=== PATIENT | female | born 1965 | race Caucasian/White ===

== ENCOUNTER 2017-08-27 15:14 | Observation (INO) ==
[2017-08-27] MEDS ORDERED: Ipratropium/Albuterol Neb 3 ML IH ONE ×2 (15:47→15:50)
--- NOTE | 2017-08-27 15:53 | Emergency Department Note ---
Disposition Clinical Impression: Acute exacerbation of chronic obstructive airways disease Disposition: Admitted As Inpatient Condition: Good Time of Disposition: 17:00 SOB HPI - General Chief Complaint: ED Shortness of Breath/Dyspnea Stated Complaint: difficult breathing Time Seen by Provider: 08/27/17 15:40 Source: patient Limitations: no limitations Nursing Notes Reviewed: Yes Vital Signs Reviewed: Yes - History of Present Illness Ms. Peter reports 2 weeks of shortness of breath and cough nonproductive. She is not sure if she had any fevers. Decreased by mouth intake secondary to throat pain. No nausea vomiting. She has had a little bit of diarrhea. She had some diffuse muscle aches as well. Currently she hurts in the chest only when coughing with deep inspiration and on position change. She just quit smoking a couple of days ago. She uses albuterol at home typically just once a month but has done much more so in the last 2 weeks with some temporary relief. She has no heart history. Pt Subjective Complaint: shortness of breath, cough, pain with inspiration, chest pain - Related Data Home Medications Medication Instructions Recorded Confirmed Brinzolamide 1% [Azopt] 1 drop .ROUTE TID 10/17/15 08/27/17 Gabapentin [Neurontin] 800 mg PO TID 10/17/15 08/27/17 Ibuprofen [Motrin] 400 mg PO Q8HR PRN 10/17/15 08/27/17 Lisinopril [Zestril] 20 mg PO DAILY 10/17/15 08/27/17 Methylphenidate HCl [Ritalin] 10 mg PO 0800,1200 10/17/15 08/27/17 Sertraline [Zoloft] 1 tab PO DAILY 10/17/15 08/27/17 hydroCHLOROthiazide 25 mg PO DAILY 10/17/15 08/27/17 [Hydrochlorothiazide] Travoprost [Travatan Z] 5 ml OP DAILY 11/29/15 08/27/17 Albuterol Sulfate [Albuterol 1 puff IH Q4HR PRN 08/27/17 08/27/17 Inhaler] Buspirone HCl [Buspar] 10 mg PO BID 08/27/17 08/27/17 Citalopram [CeleXA] 20 mg PO DAILY 08/27/17 08/27/17 Cyclobenzaprine [Flexeril] 5 mg PO TID PRN 08/27/17 08/27/17 Dexlansoprazole [Dexilant] 30 mg PO DAILY 08/27/17 08/27/17 Fluticasone/Vilanterol [Breo 1 each IH DAILY 08/27/17 08/27/17 Ellipta 100-25 Mcg INH] Allergies Allergy/AdvReac Type Severity Reaction Status Date / Time codeine Allergy Unknown See Verified 08/27/17 15:22 Comments Oxycodone [From OxyContin] Allergy Unknown Difficulty Verified 08/27/17 15:22 Breathing Penicillins Allergy Unknown See Verified 08/27/17 15:22 Comments Sulfa (Sulfonamide Allergy Unknown See Verified 08/27/17 15:22 Antibiotics) Comments tramadol [From Ultram] Allergy Unknown Hives Verified 08/27/17 15:22 Constitutional: Denies: fever, chills ENT ED: Reports: throat pain, dysphagia. Denies: congestion Cardiovascular: Reports: as per HPI, chest pain, dyspnea on exertion Respiratory: Reports: cough, dyspnea. Denies: sputum production Gastrointestinal: Denies: nausea, vomiting, diarrhea Musculoskeletal: Reports: myalgia Endocrine: Reports: fatigue Past Medical History - Past Medical History Medical history: Reports: asthma, GERD, hypertension Psychiatric history: Reports: anxiety, depression INDIVIDUAL PENSION CONSULTANT history: Reports: no INDIVIDUAL PENSION CONSULTANT history - Social History Smoking Status: Current every day smoker Smokeless Tobacco Status: No Alcohol use: Reports: none Drug use: Reports: none Physical Exam - General Limitations: no limitations General appearance: alert, in no apparent distress, other (She appears to be very tired) - Head Head exam: atraumatic, normocephalic - Eye Eye exam: Present: normal appearance. Absent: conjunctival injection - ENT ENT exam: normal exam, normal oropharynx, mucous membranes moist, TM's normal bilaterally, normal external ear exam - Neck Neck exam: Present: normal inspection. Absent: lymphadenopathy - Chest Chest inspection: Present: normal inspection, symmetric chest wall rise, tenderness (Positive pain to palpation anterior chest reproducible for her presenting complaint) - Respiratory Respiratory exam: Present: wheezes (Diffuse symmetric expiratory wheezes with fair air exchange.). Absent: respiratory distress - Cardiovascular Cardiovascular exam: Present: regular rate, normal rhythm, normal heart sounds. Absent: systolic murmur, diastolic murmur - Extremities Exam Extremities exam: Present: normal inspection. Absent: pedal edema, calf tenderness (No calf Cord erythema or edema) - Neurological Exam Neurological exam: Present: alert - Psychiatric Psychiatric exam: Present: normal affect, normal mood - Skin Skin exam: Present: warm, dry Course Vital Signs Temperature 97.7 F 08/27/17 15:15 Pulse Rate 98 08/27/17 15:15 Respiratory Rate 20 08/27/17 15:15 Blood Pressure 132/71 08/27/17 15:15 O2 Sat by Pulse Oximetry 93 08/27/17 15:15 Temperature 97.7 F 08/27/17 15:15 Pulse Rate 98 08/27/17 15:15 Respiratory Rate 20 08/27/17 15:15 Blood Pressure 132/71 08/27/17 15:15 O2 Sat by Pulse Oximetry 93 08/27/17 15:15 Oxygen Delivery Oxygen Delivery Nasal Cannula Shortness of Breath/Dyspnea - MDM Narrative Medical decision making narrative: Shortness of breath consistent with COPD exacerbation. She is now O2 dependent. She is satting in the mid 90s on 2 L and is subjectively better after 2 additional DuoNeb treatments given here in the emergency department. Repeat lung exam demonstrates persistence of wheezing although there is much better air exchange and she appears to be much more comfortable. Because FiO2 requirement will be necessary to admit her to the hospital. I spoke with the covering hospitalist here at [facility] and presented the case. He accepted admission. She is in improved condition awaiting transfer to the floor. Hypokalemia. We will keep her off her hydrochlorothiazide. She has had some diarrhea as well. We will continue to replace the potassium with a rider and give an initial by mouth doses well as the potassium is substantially decreased and will continue to do so with albuterol administration. - Medical Records Medical records reviewed: Yes I reviewed the patient's medical records. - Lab Data Lab results reviewed: Yes I reviewed the patient's lab results. Result diagrams: 08/27/17 16:09 08/27/17 16: Lab Results 08/27/17 08/27/17 08/27/17 Range/Units 16:09 16: 16: WBC 18.2 H (4.3-11.1) K/mcL RBC 4.31 (3.82-4.97) M/mcL Hgb 13.0 (11.5-15.4) g/dL Hct 38.8 (35.3-44.9) % MCV 90.0 (83.0-100.0) fL MCH 30.2 (28.0-33.3) pg MCHC 33.5 (31.6-35.5) g/dL RDW 14.0 (11.5-14.5) % Plt Count 263 (140-400) K/mcL MPV 9.2 L (9.4-12.4) fL Immature Gran % 0.7 (0-4) % Seg Neutrophils % 83.0 % Lymphocytes % 9.4 % Monocytes % 3.9 % Eosinophils % 2.7 % Basophils % 0.3 % Neutrophils # 15.1 H (1.6-8.9) K/mcL Lymphocytes # 1.7 (0.6-4.6) K/mcL Monocytes # 0.7 (0.0-1.3) K/mcL Eosinophils # 0.5 (0.0-0.6) K/mcL Basophils # 0.1 (0.0-0.2) K/mcL PT (9.4-12.1) Seconds INR APTT (26.0-36.0) Seconds Sodium (136-145) mEq/L Potassium (3.5-5.1) mEq/L Chloride (98-107) mEq/L Carbon Dioxide (23-29) mEq/L BUN (6-20) mg/dL Creatinine (0.60-1.20) mg/dL Est GFR ( Amer) (> 60) Est GFR (Non-Af Amer) (> 60) BUN/Creatinine Ratio (6-26) Glucose (70-105) mg/dL Calculated Osmolality (280-300) Lactic Acid (0.5-2.2) mmol/L Calcium (8.6-10.3) mg/dL Magnesium (1.6-2.6) mg/dL Total Bilirubin (0.3-1.0) mg/dL AST (13-39) Units/L ALT (7-52) Units/L Alkaline Phosphatase (34-104) Units/L Troponin I < 0.03 (< 0.04) ng/mL B-Natriuretic Peptide 44 (Less than 100) pg/mL Serum Total Protein (6.4-8.9) g/dL Albumin (3.5-5.7) g/dL Globulin (2.4-3.5) g/dL Albumin/Globulin Ratio (1.1-2.2) 08/27/17 08/27/17 08/27/17 Range/Units 16:09 16:09 16:09 WBC (4.3-11.1) K/mcL RBC (3.82-4.97) M/mcL Hgb (11.5-15.4) g/dL Hct (35.3-44.9) % MCV (83.0-100.0) fL MCH (28.0-33.3) pg MCHC (31.6-35.5) g/dL RDW (11.5-14.5) % Plt Count (140-400) K/mcL MPV (9.4-12.4) fL Immature Gran % (0-4) % Seg Neutrophils % % Lymphocytes % % Monocytes % % Eosinophils % % Basophils % % Neutrophils # (1.6-8.9) K/mcL Lymphocytes # (0.6-4.6) K/mcL Monocytes # (0.0-1.3) K/mcL Eosinophils # (0.0-0.6) K/mcL Basophils # (0.0-0.2) K/mcL PT (9.4-12.1) Seconds INR APTT (26.0-36.0) Seconds Sodium 136 (136-145) mEq/L Potassium 2.7 L (3.5-5.1) mEq/L Chloride 100 (98-107) mEq/L Carbon Dioxide 27 (23-29) mEq/L BUN 12 (6-20) mg/dL Creatinine 0.67 (0.60-1.20) mg/dL Est GFR ( Amer) > 60 (> 60) Est GFR (Non-Af Amer) > 60 (> 60) BUN/Creatinine Ratio 18 (6-26) Glucose 115 H (70-105) mg/dL Calculated Osmolality 283 (280-300) Lactic Acid 1.3 (0.5-2.2) mmol/L Calcium 9.3 (8.6-10.3) mg/dL Magnesium 1.8 (1.6-2.6) mg/dL Total Bilirubin 0.9 (0.3-1.0) mg/dL AST 11 L (13-39) Units/L ALT 10 (7-52) Units/L Alkaline Phosphatase 103 (34-104) Units/L Troponin I (< 0.04) ng/mL B-Natriuretic Peptide (Less than 100) pg/mL Serum Total Protein 6.4 (6.4-8.9) g/dL Albumin 4.2 (3.5-5.7) g/dL Globulin 2.2 L (2.4-3.5) g/dL Albumin/Globulin Ratio 1.9 (1.1-2.2) /12/09 Range/Units 16:09 WBC (4.3-11.1) K/mcL RBC (3.82-4.97) M/mcL Hgb (11.5-15.4) g/dL Hct (35.3-44.9) % MCV (83.0-100.0) fL MCH (28.0-33.3) pg MCHC (31.6-35.5) g/dL RDW (11.5-14.5) % Plt Count (140-400) K/mcL MPV (9.4-12.4) fL Immature Gran % (0-4) % Seg Neutrophils % % Lymphocytes % % Monocytes % % Eosinophils % % Basophils % % Neutrophils # (1.6-8.9) K/mcL Lymphocytes # (0.6-4.6) K/mcL Monocytes # (0.0-1.3) K/mcL Eosinophils # (0.0-0.6) K/mcL Basophils # (0.0-0.2) K/mcL PT 12.5 H (9.4-12.1) Seconds INR 1.2 APTT 28.1 (26.0-36.0) Seconds Sodium (136-145) mEq/L Potassium (3.5-5.1) mEq/L Chloride (98-107) mEq/L Carbon Dioxide (23-29) mEq/L BUN (6-20) mg/dL Creatinine (0.60-1.20) mg/dL Est GFR ( Amer) (> 60) Est GFR (Non-Af Amer) (> 60) BUN/Creatinine Ratio (6-26) Glucose (70-105) mg/dL Calculated Osmolality (280-300) Lactic Acid (0.5-2.2) mmol/L Calcium (8.6-10.3) mg/dL Magnesium (1.6-2.6) mg/dL Total Bilirubin (0.3-1.0) mg/dL AST (13-39) Units/L ALT (7-52) Units/L Alkaline Phosphatase (34-104) Units/L Troponin I (< 0.04) ng/mL B-Natriuretic Peptide (Less than 100) pg/mL Serum Total Protein (6.4-8.9) g/dL Albumin (3.5-5.7) g/dL Globulin (2.4-3.5) g/dL Albumin/Globulin Ratio (1.1-2.2) - Radiology Data Radiology results reviewed: Yes I reviewed the patient's radiology results. - EKG Data EKG attestation: Yes I reviewed and interpreted this EKG. EKG results narrative: EKG as interpreted by me normal sinus rhythm [address] depressions 1.5 boxes downsloping lead to leads 3-lead aVF. ST depression one box V3 and V4 V5 V6. Normal axis. No evidence of hypertrophy. No ST elevation. No comparison available. I do not appreciate any U waves.
[2017-08-27 16:20] LABS: Basophils # 0.1 K/mcL (0.0-0.2); Basophils % 0.3 %; Eosinophils # 0.5 K/mcL (0.0-0.6); Eosinophils % 2.7 %; Hematocrit 38.8 % (35.3-44.9); Immature Granulocytes % 0.7 % (0-4); Lymphocytes # 1.7 K/mcL (0.6-4.6); Lymphocytes % 9.4 %; Mean Corpuscular HGB Conc 33.5 g/dL (31.6-35.5); Mean Corpuscular Hemoglobin 30.2 pg (28.0-33.3); Mean Platelet Volume 9.2 fL (9.4-12.4); Monocytes # 0.7 K/mcL (0.0-1.3); Monocytes % 3.9 %; Neutrophils # 15.1 K/mcL (1.6-8.9); Platelet Count 263 K/mcL (140-400); Red Blood Count 4.31 M/mcL (3.82-4.97)
[2017-08-27 16:40] LABS: Alanine Aminotransferase 10 Units/L (7-52); Albumin 4.2 g/dL (3.5-5.7); Albumin/Globulin Ratio 1.9 (1.1-2.2); Alkaline Phosphatase 103 Units/L (34-104); Aspartate Amino Transferase 11 Units/L (13-39); BUN/Creatinine Ratio 18 (6-26); Bilirubin,Total 0.9 mg/dL (0.3-1.0); Blood Urea Nitrogen 12 mg/dL (6-20); Calcium 9.3 mg/dL (8.6-10.3); Carbon Dioxide 27 mEq/L (23-29); Chloride 100 mEq/L (98-107); Globulin 2.2 g/dL (2.4-3.5); Glucose 115 mg/dL (70-105); Osmolality,Calculated 283 (280-300); Potassium 2.7 mEq/L (3.5-5.1); Sodium 136 mEq/L (136-145); Total Protein 6.4 g/dL (6.4-8.9); eGFR For African Americans > 60 (> 60); eGFR For Non-African Americans > 60 (> 60)
[2017-08-27 17:31] LABS: INR 1.2; Prothrombin Time 12.5 Seconds (9.4-12.1)
[2017-08-27] MEDS ORDERED: Azithromycin 250 MG TABLET PO ONE (17:31)
[2017-08-27 17:33] LABS: Activated Partial Thrombo Time 28.1 Seconds (26.0-36.0)
[2017-08-27] MEDS ORDERED: Naloxone 0.4 MG/ML INJ IVP PRN (17:39)
[2017-08-27] MEDS ORDERED: Albuterol 2.5 MG/3 ML NEBULIZER IH PRN (17:39)
[2017-08-27] MEDS: MethylPREDNISolone 40 MG/ML VIAL IVP SCH (18:39)
[2017-08-27] MEDS ORDERED: 0.9 % Sodium Chloride Mini Bag 100 ML ONE (18:41)
[2017-08-27] MEDS: Gabapentin 400 MG CAPSULE PO SCH (21:06)
[2017-08-27] MEDS: Ipratropium/Albuterol Neb 3 ML IH PRN (21:07)
[2017-08-28] MEDS: MethylPREDNISolone 40 MG/ML VIAL IVP SCH ×5 (00:22→22:58)
[2017-08-28] MEDS: *HR* Enoxaparin 40 MG/0.4 ML SYRINGE SQ SCH (05:37)
[2017-08-28] MEDS: Ipratropium/Albuterol Neb 3 ML IH PRN ×2 (05:41→17:28)
[2017-08-28 07:14] LABS: BUN/Creatinine Ratio 23 (6-26); Blood Urea Nitrogen 14 mg/dL (6-20); Calcium 9.4 mg/dL (8.6-10.3); Carbon Dioxide 26 mEq/L (23-29); Chloride 102 mEq/L (98-107); Glucose 165 mg/dL (70-105); Osmolality,Calculated 288 (280-300); Potassium 3.1 mEq/L (3.5-5.1); Sodium 137 mEq/L (136-145); eGFR For African Americans > 60 (> 60); eGFR For Non-African Americans > 60 (> 60)
[2017-08-28 09:39] LABS: Bilirubin,Urine Negative (Negative); Blood,Urine Trace-intact (Negative); Clarity,Urine Clear (Clear); Color,Urine Yellow (Yellow); Glucose,Urine (UA) Normal (Normal); Ketones,Urine Negative (Negative); Leukocyte Esterase,Urine Trace (Negative); Nitrite,Urine Negative (Negative); PH,Urine 6.5 pH Units (5.0-8.0); Protein,Urine Negative (Neg-Trace); Specific Gravity,Urine 1.015 (1.010-1.025); Urobilinogen,Urine Normal (Normal)
[2017-08-28 09:42] LABS: Bacteria,Urine Few per hpf (None-Few); RBC,Urine 0-3 per hpf (0-3); Squamous Epithelial Cell,Urine Few per lpf (None-Few); WBC,Urine 0-3 per hpf (0-3)
[2017-08-28] MEDS: Lisinopril 20 MG TABLET PO SCH (10:01)
[2017-08-28] MEDS: Azithromycin 250 MG TABLET PO SCH (10:01)
[2017-08-28] MEDS: Gabapentin 400 MG CAPSULE PO SCH ×3 (10:01→22:57)
[2017-08-28] MEDS: Latanoprost 2.5 ML BOTTLE BOTH EYES SCH (10:02)
[2017-08-28] MEDS: DEXLANSOPRAZOLE 30 MG PO SCH (10:02)
[2017-08-28] MEDS: Methylphenidate HCl 10 MG TABLET PO SCH ×2 (10:03→13:40)
--- NOTE | 2017-08-28 13:33 | Internal Med History&Physical ---
Date of Encounter: 08/28/17 Time of Encounter: 13:30 Assessment and Plan (1) Acute exacerbation of chronic obstructive airways disease Current visit: Yes Status: Acute continue O2, inhaled meds and steroids. will follow for improvement. will try to wean off O2. Internal Medicine - H&P: HPI Admitted From: Emergency Dept Plans for Post Hospital Care: Home History of present illness: Ms. Peter is a 52 year old female presents to unit from ED after having a 2 week hx of cough and SOB. cough is non-prod. denies fever, chills, NVD. 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 [facility] she is a former smoker and quit 2 months ago. [facility] nonprod continues today but SOB is improving. still on O2 per NC at 92% Past Med Surg Social Fam HX - Past Medical History Medical history: arthritis, asthma, COPD, GERD, hyperlipidemia, hypertension, migraine Psychiatric history: anxiety, depression - Social History Smoking Status: Current every day smoker Smokeless Tobacco Status: No Alcohol use: none Drug use: none - Family History Father Living Status: Hx Family Cancer: Yes Internal Medicine - H&P: Meds Brinzolamide 1% [Azopt] 1 drop .ROUTE TID 10/17/15 [History] Gabapentin [Neurontin] 800 mg PO TID 10/17/15 [History] Ibuprofen [Motrin] 400 mg PO Q8HR PRN 10/17/15 [History] Lisinopril [Zestril] 20 mg PO DAILY 10/17/15 [History] Methylphenidate HCl [Ritalin] 10 mg PO 0800,1200 10/17/15 [History] Sertraline [Zoloft] 1 tab PO DAILY 10/17/15 [History] hydroCHLOROthiazide [Hydrochlorothiazide] 25 mg PO DAILY 10/17/15 [History] Travoprost [Travatan Z] 5 ml OP DAILY 11/29/15 [History] Albuterol Sulfate [Albuterol Inhaler] 1 puff IH Q4HR PRN 08/27/17 [History] Buspirone HCl [Buspar] 10 mg PO BID 08/27/17 [History] Citalopram [CeleXA] 20 mg PO DAILY 08/27/17 [History] Cyclobenzaprine [Flexeril] 5 mg PO TID PRN 08/27/17 [History] Dexlansoprazole [Dexilant] 30 mg PO DAILY 08/27/17 [History] Fluticasone/Vilanterol [Breo Ellipta 100-25 Mcg INH] 1 each IH DAILY 08/27/17 [ History] 3 Allergy/AdvReac Type Severity Reaction Status Date / Time codeine Allergy Unknown See Verified 08/27/17 15:22 Comments Oxycodone [From OxyContin] Allergy Unknown Difficulty Verified 08/27/17 15:22 Breathing Penicillins Allergy Unknown See Verified 08/27/17 15:22 Comments Sulfa (Sulfonamide Allergy Unknown See Verified 08/27/17 15:22 Antibiotics) Comments tramadol [From Ultram] Allergy Unknown Hives Verified 08/27/17 15:22 All Systems PM: A 10-system review of systems was performed and is negative for pertinent findings except as documented above in the HPI. - Constitutional Constitutional: no chills, no fever(s), no night sweats - EENT Eyes: no change in vision, no discharge, no pain, no photophobia Ears: no ear discharge, no ear pain, no tinnitus Nose, mouth and throat: no dysphagia, no nasal discharge, no neck pain, no sore throat - Cardiovascular Cardiovascular ROS IM: no chest pain, no diaphoresis, no dyspnea, no lightheadedness, no palpitations, no syncope - Respiratory Respiratory: cough, no dyspnea, no wheezing, no excessive phlegm production Additional comments: SOB with exertion - Gastrointestinal Gastrointestinal: no abdominal pain, no diarrhea, no hematemesis, no hematochezia, no melena, no nausea, no vomiting - Genitourinary Genitourinary: no change in urinary stream, no dysuria, no flank pain, no hematuria - Musculoskeletal Musculoskeletal ROS IM: no numbness, no tingling - Integumentary Integumentary IM: no rash, no unusual bruising - Neurological Neurological ROS: no confusion, no convulsions, no focal weakness, no numbness, no tingling, no tremor(s) - Hematologic/Lymphatic Hematologic/Lymphatic: no easy bruising - Constitutional Vitals: Temp Pulse Resp BP Pulse Ox 98.5 F 89 16 99/62 92 08/28/17 10:00 08/28/17 10:00 08/28/17 10:00 08/28/17 10:00 08/28/17 10:00 General appearance: Present: A&O X 3, pleasant, no acute distress, answers questions appropriately - Head Head exam: Present: atraumatic, normocephalic - Eye Eye exam: Present: PERRL, conjuntiva pink, sclera anicteric Pupils: Present: PERRL - Neck Neck exam general surgery: Present: supple, trachea midline. Absent: lymphadenopathy - Respiratory Respiratory exam: Present: wheezes. Absent: accessory muscle use, rales, rhonchi Additional comments: bronchospastic cough with fine, diffuse expiratory wheezes in bilat upper lobes. - Cardiovascular Cardiovascular exam: Present: RRR, +S1, +S2. Absent: diastolic murmur, gallop, rubs, systolic murmur - GI/Abdominal GI/Abdominal exam: Present: normal bowel sounds, soft, no peritoneal signs. Absent: distended, tenderness - Extremities Exam Extremities exam: Present: warm, radial pulses palpable and symmetrical. Absent : calf tenderness, cyanotic, pedal edema - Neurological Exam Neurological exam: Present: CN II-XII intact, oriented X3, no focal deficits. Absent: pronater drift, facial droop, speech deficit - Skin Skin exam: Present: dry, intact Internal Med - H&P Results - Labs CBC & Chem 7: 08/27/17 16:09 08/28/17 06:38 Labs: BMP 08/28/17 06:38 Sodium 137 Potassium 3.1 L Chloride 102 Carbon Dioxide 26 BUN 14 Creatinine 0.60 Glucose 165 H Calcium 9.4 Urine 08/28/17 Range/Units 09:00 Urine Color Yellow (Yellow) Urine Clarity Clear (Clear) Urine pH 6.5 (5.0-8.0) pH Units Ur Specific [place] 1.015 (1.010-1.025) Urine Protein Negative (Neg-Trace) mg/dL Urine Glucose (UA) Normal (Normal) mg/dL
--- NOTE | 2017-08-28 19:23 | Electrocardiograph Report ---
[address] [address] Test Date: 2017-08-27 Pat Name: Zoe Peter Department: 2000 Room: 117 Gender: F Technical Professional: : 1965 Requested By: Carlos Vergara Order Number: [id number] Reading MD: Dick Burciaga MD Measurements Intervals [place] Rate: 88 P: 60 ID: [id number] QRS: 62 QRSD: 90 T: -80 QT: 338 QTc: 384 Interpretive Statements SINUS RHYTHM ANTEROLATERAL ISCHEMIA BASELINE ARTIFACT BASELINE ARTIFACT COMPLICATES ACCURATE INTERPRETATION Electronically Signed On 08-28-2017 19:22:09 EST by Dick Burciaga MD
[2017-08-29] MEDS: MethylPREDNISolone 40 MG/ML VIAL IVP SCH ×2 (05:32→11:04)
[2017-08-29] MEDS: *HR* Enoxaparin 40 MG/0.4 ML SYRINGE SQ SCH (05:32)
[2017-08-29] MEDS: Ipratropium/Albuterol Neb 3 ML IH PRN (05:33)
[2017-08-29 05:46] LABS: Basophils % 0.1 %; Hemoglobin 12.2 g/dL (11.5-15.4); Immature Granulocytes % 1.1 % (0-4); Lymphocytes % 3.7 %; Mean Corpuscular Hemoglobin 30.2 pg (28.0-33.3); Mean Corpuscular Volume 91.6 fL (83.0-100.0); Mean Platelet Volume 9.4 fL (9.4-12.4); Monocytes # 0.8 K/mcL (0.0-1.3); Monocytes % 2.7 %; Platelet Count 281 K/mcL (140-400); Red Blood Count 4.04 M/mcL (3.82-4.97); Red Cell Distribution Width 14.4 % (11.5-14.5); Segmented Neutrophils % 92.4 %
[2017-08-29 06:00] LABS: BUN/Creatinine Ratio 30 (6-26); Blood Urea Nitrogen 21 mg/dL (6-20); Calcium 9.4 mg/dL (8.6-10.3); Carbon Dioxide 26 mEq/L (23-29); Chloride 102 mEq/L (98-107); Glucose 153 mg/dL (70-105); Osmolality,Calculated 286 (280-300); Potassium 3.7 mEq/L (3.5-5.1); Sodium 135 mEq/L (136-145); eGFR For African Americans > 60 (> 60); eGFR For Non-African Americans > 60 (> 60)
[2017-08-29 07:08] LABS: Neutrophils # 25.7 K/mcL (1.6-8.9)
[2017-08-29 07:13] LABS: Platelet Estimate Normal (Normal)
[2017-08-29] MEDS: Gabapentin 400 MG CAPSULE PO SCH (11:04)
[2017-08-29] MEDS: Azithromycin 250 MG TABLET PO SCH (11:04)
[2017-08-29] MEDS: Methylphenidate HCl 10 MG TABLET PO SCH (11:04)
[2017-08-29] MEDS: DEXLANSOPRAZOLE 30 MG PO SCH (11:05)
[2017-08-29] MEDS: Lisinopril 20 MG TABLET PO SCH (11:05)
[2017-08-29] MEDS: Latanoprost 2.5 ML BOTTLE BOTH EYES SCH (11:06)
[2017-08-29 11:58] VITALS: BP 94/58
--- NOTE | 2017-08-29 12:59 | Internal Med Progress Note ---
Date of Encounter: 08/29/17 Time of Encounter: 12:54 - Constitutional Vitals: Temp Pulse Resp BP Pulse Ox 97.6 F 65 16 94/58 95 08/29/17 11:57 08/29/17 11:57 08/29/17 11:57 08/29/17 11:57 08/29/17 11:57 General appearance: Present: A&O X 3, pleasant, no acute distress, answers questions appropriately Internal Medicine: Result - Labs CBC & Chem 7: 08/29/17 05:30 08/29/17 05:30 Labs: Short CBC 08/29/17 Range/Units 05:30 WBC 27.8 H D (4.3-11.1) K/mcL Hgb 12.2 (11.5-15.4) g/dL Hct 37.0 (35.3-44.9) % Plt Count 281 (140-400) K/mcL Neutrophils # 25.7 H (1.6-8.9) K/mcL BMP 08/29/17 05:30 Sodium 135 L Potassium 3.7 Chloride 102 Carbon Dioxide 26 BUN 21 H Creatinine 0.71 Glucose 153 H Calcium 9.4 - ABG Interpretation ABG results: PT/INR, D-dimer PT 12.5 Seconds (9.4-12.1) H 08/27/17 16:09 Consult Discharge Plan - Plan Referrals: Ashtyn Parker MD [Primary Care Provider] -
--- NOTE | 2017-08-29 14:11 | Discharge Summary ---
- NOTES TO OUTPATIENT PROVIDER Notes to Outpatient Provider: Patient to f/u for evaluation. Was admitted for exacerbation of COPD and treated for bronchitis/UTI with Zithromax and Levaquin and also given a tapering dose of Prednisone. Date of Encounter: 08/29/17 Time of Encounter: 14:09 - Discharge Diagnosis (1) Acute exacerbation of chronic obstructive airways disease Priority: Primary Status: Acute Comments: Pt with exacerbation of COPD. Patient was treated with antibiotics and corticosteroids. Her stay of facility and has improved, currently denying any shortness of breath. Patient states she continues to feel malaise. Patient was weaned off oxygen and maintain his saturation greater than 90% while on room air. Patient to continue with nebulized treatment at home per her PCP. Patient will be discharged with prescriptions for oral antibiotics and a tapering dose of prednisone. (2) HTN (hypertension) Priority: Secondary Status: Chronic Comments: No acute issues currently stable facility. Vital signs stable. Patient to continue with home medications Qualifiers: Hypertension type: essential hypertension Qualified Code(s): I10 - Essential (primary) hypertension (3) Lumbar disc disease with radiculopathy Priority: Secondary Status: Chronic Comments: Patient with no current issues of low back pain or radiculopathy symptoms during stay of facility. Patient to continue with current medications at home Hospital course: Ms. Peter is a 52 year old female with a long history of COPD. Patient with exacerbation of shortness of breath about 2 weeks ago. Briefly treated by her primary care physician with a burst of steroids and had completed. A few days ago, began to cough and this worsened until she was suddenly short of breath and presented in the ED. Patient was treated with nebulized bronchodilators and corticosteroids and was admitted for continued observation. Patient was treated with antibiotics. Today patient states that her breathing feels much improved. Patient continues to have slight expiratory wheeze heard appears relaxed with respiratory effort. Patient was weaned off her oxygen and maintains a saturation greater than 90% while on room air. Patient will be discharged to home with recommendations of follow-up with PCP within one week for continued evaluation and treatment. Patient will be given prescriptions for oral antibiotics and a prednisone tapering dose. Discharge discussed with: patient - Time Spent with Patient Total time spent providing and/or coordinating discharge services: Less than 30 minutes - Discharge Medications Prescriptions: Levofloxacin [Levaquin] 750 mg PO DAILY 7 Days #1 tablet predniSONE [PredniSONE] See Taper PO DAILY 7 Days #1 tablet Home Medications: Brinzolamide 1% [Azopt] 1 drop .ROUTE TID 10/17/15 [History] Gabapentin [Neurontin] 800 mg PO TID 10/17/15 [History] Ibuprofen [Motrin] 400 mg PO Q8HR PRN 10/17/15 [History] Lisinopril [Zestril] 20 mg PO DAILY 10/17/15 [History] Methylphenidate HCl [Ritalin] 10 mg PO 0800,1200 10/17/15 [History] Sertraline [Zoloft] 1 tab PO DAILY 10/17/15 [History] hydroCHLOROthiazide [Hydrochlorothiazide] 25 mg PO DAILY 10/17/15 [History] Travoprost [Travatan Z] 5 ml OP DAILY 11/29/15 [History] Albuterol Sulfate [Albuterol Inhaler] 1 puff IH Q4HR PRN 08/27/17 [History] Buspirone HCl [Buspar] 10 mg PO BID 08/27/17 [History] Citalopram [CeleXA] 20 mg PO DAILY 08/27/17 [History] Cyclobenzaprine [Flexeril] 5 mg PO TID PRN 08/27/17 [History] Dexlansoprazole [Dexilant] 30 mg PO DAILY 08/27/17 [History] Fluticasone/Vilanterol [Breo Ellipta 100-25 Mcg INH] 1 each IH DAILY 08/27/17 [ History] Levofloxacin [Levaquin] 750 mg PO DAILY 7 Days #1 tablet 08/29/17 [Rx] predniSONE [PredniSONE] See Taper PO DAILY 7 Days #1 tablet 08/29/17 [Rx] Allergies/Adverse Reactions: 3 Allergy/AdvReac Type Severity Reaction Status Date / Time codeine Allergy Unknown See Verified 08/27/17 15:22 Comments Oxycodone [From OxyContin] Allergy Unknown Difficulty Verified 08/27/17 15:22 Breathing Penicillins Allergy Unknown See Verified 08/27/17 15:22 Comments Sulfa (Sulfonamide Allergy Unknown See Verified 08/27/17 15:22 Antibiotics) Comments tramadol [From Ultram] Allergy Unknown Hives Verified 08/27/17 15:22 Date of admission: 08/27/17 17:55 Primary care physician: Ashtyn Parker, Discharging clinician: Carlos Vergara Anticipated date of discharge: 08/29/17 - Constitutional Vitals: Temp Pulse Resp BP Pulse Ox 97.6 F 65 16 94/58 95 08/29/17 11:57 08/29/17 11:57 08/29/17 11:57 08/29/17 11:57 08/29/17 11:57 General appearance: Present: A&O X 3, pleasant, no acute distress, answers questions appropriately - Head Head exam: Present: atraumatic, normocephalic - Eye Eye exam: Present: PERRL, conjuntiva pink, sclera anicteric Pupils: Present: PERRL - Neck Neck exam general surgery: Present: supple, trachea midline. Absent: lymphadenopathy - Respiratory Respiratory exam: Present: CTAB, wheezes. Absent: accessory muscle use, rales, rhonchi Additional comments: Lungs have diminished breath sounds throughout lower [place]. Noted slight expiratory wheeze to upper [place]. Respiratory effort appears relaxed. Oximetry currently shows saturation 91% while on room air. - Cardiovascular Cardiovascular exam: Present: RRR, +S1, +S2. Absent: diastolic murmur, gallop, rubs, systolic murmur - GI/Abdominal GI/Abdominal exam: Present: normal bowel sounds, soft, no peritoneal signs. Absent: distended, tenderness - Extremities Exam Extremities exam: Present: warm, radial pulses palpable and symmetrical. Absent : calf tenderness, cyanotic, pedal edema - Neurological Exam Neurological exam: Present: CN II-XII intact, oriented X3, no focal deficits. Absent: pronater drift, facial droop, speech deficit - Skin Skin exam: Present: dry, intact - Patient Status Disposition: Home, Self-Care Condition: Good Functional capacity at discharge: independent ambulation Overall status at discharge: patient is progressing back to baseline - Discharge Instructions Follow Up With: Ashtyn Parker MD [Primary Care Provider] - - Diet and Activity Activity: increase activity as tolerated Diet: advance to your usual diet
== END 2017-08-29 16:30 | disposition home or self-care (01) ==
LOC: EMEROOGRE 15:14 → INPGRE 15:14